=== PATIENT | female | born 1995 | race Caucasian/White ===

== ENCOUNTER 2019-12-24 19:07 | Emergency (ER) | payer SELFPAY ==
[2019-12-24] MEDS ORDERED: Sodium Chloride 0.9% 2.5 ML Syringe FLUSH PRN (19:29)
[2019-12-24] MEDS ORDERED: Sodium Chloride 0.9% 10 ML Syringe FLUSH PRN (19:29)
[2019-12-24 20:07] LABS: BLOOD UREA NITROGEN,BUN 11 mg/dL (7.0-18.0); CARBON DIOXIDE,CO2 30.7 mmol/L (21.0-32.0); CHLORIDE,CL 103 mmol/L (98-107); GLUCOSE RANDOM 96 mg/dL (74-106); POTASSIUM,K 3.9 mmol/L (3.5-5.1); SODIUM,NA 143 mmol/L (136-145)
[2019-12-24] MEDS ORDERED: Ketorolac 30 MG/ML SDV IVPUSH ONE (20:35)
--- NOTE | 2019-12-24 21:12 | EDM.PDOC ---
ED HPI GENERAL MEDICAL PROBLEM - General Chief Complaint: Abdominal Pain Stated Complaint: ABDOMINAL PAIN Time Seen by Provider: 12/24/19 19:20 Source of Information: Reports: Patient History Limitations: Reports: No Limitations - History of Present Illness INITIAL COMMENTS - FREE TEXT/NARRATIVE: Presents reporting a one-month history of pelvic pain. It comes and goes but got worse today. She has not sought medical attention previous to this. She has a Kyleena for control is sexually active with one partner. Just had her Kyleena inserted about 3 months ago: periods have been irregular--she bled for 2 weeks stop for a week and started for another 2 weeks. Currently no vaginal bleeding for the last week. Denies dysuria, fever, back pain, vaginal itch or discharge, vomiting, constipation, diarrhea. lower abdomen Pain Score (Numeric/FACES): 9 - Related Data Allergies Allergy/AdvReac Type Severity Reaction Status Date / Time hydrocodone Allergy Itching Verified 12/24/19 19:20 lavender (Lavandula Allergy Hives Verified 12/24/19 19:20 angustifolia) Home Meds: Home Meds Biotin 1 tab PO DAILY 12/24/19 [History] Multivitamin [Multivitamins] 1 tab PO DAILY 12/24/19 [History] Sulfamethoxazole/Trimethoprim [Bactrim Ds Tablet] 1 each PO BID #6 tablet 12/24/19 [Rx] Past Medical History Gastrointestinal History: Reports: GERD, Other (See Below) Other Gastrointestinal History: Gastic Intestinal Metaplasia - Past Surgical History Musculoskeletal Surgical History: Reports: Other (See Below) Other Musculoskeletal Surgeries/Procedures:: Torn Hip Labrum, Bone Overgrowth, Hip Dysplasia Social & Family History - Family History Family Medical History: Noncontributory - Tobacco Use Smoking Status *Q: Never Smoker - Recreational Drug Use Recreational Drug Use: No ED ROS GENERAL - Review of Systems Review Of Systems: Comprehensive ROS is negative, except as noted in HPI. ED EXAM, GI/ABD - Physical Exam Exam: See Below Exam Limited By: No Limitations General Appearance: Alert, No Apparent Distress Ears: Normal External Exam Nose: Normal Inspection Throat/Mouth: Normal Inspection Head: Atraumatic, Normocephalic Neck: Normal Inspection Respiratory/Chest: No Respiratory Distress, Lungs Clear, Normal Breath Sounds Cardiovascular: Normal Peripheral Pulses, Regular Rate, Rhythm, No Murmur GI/Abdominal Exam: Normal Bowel Sounds, Soft (Female) Exam: Normal External Exam, Normal Bimanual Exam, Cervical Lesions (Erosion around the cervical os), Vaginal Discharge (white, thick), Other (IUD strings protruding from the cervical os). No: Adnexal Mass, Adnexal Tenderness, Cervical Dilatation, Cervical Discharge, Cervix Motion Tenderness, Uterine Tenderness, Vaginal Bleeding, Vaginal Lesions Back Exam: Normal Inspection Extremities: Normal Inspection Neurological: Alert, Oriented Psychiatric: Normal Affect, Normal Mood Skin Exam: Warm, Dry, Intact, Normal Color, No Rash Lymphatic: No Adenopathy Course - Vital Signs Last Recorded V/S: Last Vital Signs Temp 36.5 C 12/24/19 19:17 Pulse 80 12/24/19 19:17 Resp 16 12/24/19 19:17 BP 128/85 12/24/19 19:17 Pulse Ox 98 12/24/19 19:17 - Orders/Labs/Meds Orders: Active Orders 24 hr Category Date Time Status Sodium Chloride 0.9% [Saline Flush] Med 12/24/19 19:29 Ordered 10 ml FLUSH ASDIRECTED PRN Sodium Chloride 0.9% [Saline Flush] Med 12/24/19 19:29 Ordered 2.5 ml FLUSH ASDIRECTED PRN Saline Lock Insert [OM.PC] Stat Oth 12/24/19 19:29 Ordered Medication Orders Sodium Chloride (Saline Flush) 10 ml FLUSH ASDIRECTED PRN PRN Reason: Keep Vein Open Sodium Chloride (Saline Flush) 2.5 ml FLUSH ASDIRECTED PRN PRN Reason: Keep Vein Open Labs: Laboratory Tests 12/24/19 12/24/19 12/24/19 Range/Units 19:33 19:33 19:42 WBC 6.83 (4.0-11.0) K/uL RBC 4.57 (4.30-5.90) M/uL Hgb 14.1 (12.0-16.0) g/dL Hct 42.7 (36.0-46.0) % MCV 93.4 (80.0-98.0) fL MCH 30.9 (27.0-32.0) pg MCHC 33.0 (31.0-37.0) g/dL RDW Std Deviation 44.9 (28.0-62.0) fl RDW Coeff of Shahzad 13 (11.0-15.0) % Plt Count 247 (150-400) K/uL MPV 10.30 (7.40-12.00) fL Neut % (Auto) 56.6 (48.0-80.0) % Lymph % (Auto) 33.4 (16.0-40.0) % [place] % (Auto) 7.0 (0.0-15.0) % Eos % (Auto) 2.6 (0.0-7.0) % Baso % (Auto) 0.4 (0.0-1.5) % Neut # (Auto) 3.9 (1.4-5.7) K/uL Lymph # (Auto) 2.3 (0.6-2.4) K/uL [place] # (Auto) 0.5 (0.0-0.8) K/uL Eos # (Auto) 0.2 (0.0-0.7) K/uL Baso # (Auto) 0.0 (0.0-0.1) K/uL Nucleated RBC % 0.0 /100WBC Nucleated RBCs # 0 K/uL Sodium 143 (136-145) mmol/L Potassium 3.9 (3.5-5.1) mmol/L Chloride 103 (98-107) mmol/L Carbon Dioxide 30.7 (21.0-32.0) mmol/L BUN 11 (7.0-18.0) mg/dL Creatinine 0.7 (0.6-1.0) mg/dL Est Cr Clr Drug Dosing 93.18 mL/min Estimated GFR (MDRD) > 60.0 ml/min Glucose 96 (74-106) mg/dL Calcium 9.5 (8.5-10.1) mg/dL Total Bilirubin 0.6 (0.2-1.0) mg/dL AST 18 (15-37) IU/L ALT 18 (14-63) IU/L Alkaline Phosphatase 62 (46-116) U/L Total Protein 7.1 (6.4-8.2) g/dL Albumin 4.7 (3.4-5.0) g/dL Globulin 2.4 L (2.6-4.0) g/dL Albumin/Globulin Ratio 2.0 H (0.9-1.6) Urine Color YELLOW Urine Appearance HAZY Urine pH 7.0 (5.0-8.0) Ur Specific [place] 1.025 (1.001-1.035) Urine Protein NEGATIVE (NEGATIVE) mg/dL Urine Glucose (UA) NEGATIVE (NEGATIVE) mg/dL Urine Ketones NEGATIVE (NEGATIVE) mg/dL Urine Occult Blood NEGATIVE (NEGATIVE) Urine Nitrite NEGATIVE (NEGATIVE) Urine Bilirubin NEGATIVE (NEGATIVE) Urine Urobilinogen 0.2 (<2.0) EU/dL Ur Leukocyte Esterase TRACE H (NEGATIVE) Urine RBC 0-2 (0-2/HPF) Urine WBC 1-3 (0-5/HPF) Ur Epithelial Cells OCCASIONAL (NONE-FEW) Urine Bacteria 1+ H (NEGATIVE) Meds: Medications Generic Name Dose Route Start Last Admin Trade Name Freq PRN Reason Stop Dose Admin Sodium Chloride 10 ml 12/24/19 19:29 Saline Flush FLUSH ASDIRECTED PRN Keep Vein Open Sodium Chloride 2.5 ml 12/24/19 19:29 Saline Flush FLUSH ASDIRECTED PRN Keep Vein Open Departure - Departure Time of Disposition: 21:33 Disposition: Home, Self-Care 01 Condition: Good Clinical Impression: Pelvic pain - Discharge Information Referrals: PCP,None [Primary Care Provider] - [facility] [Outside] [facility] [Outside] Augie Christiansen MD [Physician] - [facility] [Outside] Additional Instructions: The following information is given to patients seen in the emergency department who are being discharged to home. This information is to outline your options for follow-up care. We provide all patients seen in our emergency department with a follow-up referral. The need for follow-up, as well as the timing and circumstances, are variable depending upon the specifics of your emergency department visit. If you don't have a primary care physician on staff, we will provide you with a referral. We always advise you to contact your personal physician following an emergency department visit to inform them of the circumstance of the visit and for follow-up with them and/or the need for any referrals to a consulting specialist. The emergency department will also refer you to a specialist when appropriate. This referral assures that you have the opportunity for follow-up care with a specialist. All of these measure are taken in an effort to provide you with optimal care, which includes your follow-up. Under all circumstances we always encourage you to contact your private physician who remains a resource for coordinating your care. When calling for follow-up care, please make the office aware that this follow-up is from your recent emergency room visit. If for any reason you are refused follow-up, please contact the [facility] Emergency Department at and asked to speak to the emergency department charge nurse. 1. Follow up by making an appointment in [employer] either at [facility] or [facility] Dr. Christiansen 2. Tylenol Arthritis (650mg) three times daily as needed for pain. 3. We will call with the results of your yeast/BV/tric test Sepsis Event Note (ED) - Evaluation Sepsis Screening Result: No Definite Risk - Focused Exam Vital Signs: Vital Signs Temp Pulse Resp BP Pulse Ox 12/24/19 19:17 36.5 C 80 16 128/85 98 - My Orders Last 24 Hours: My Active Orders 12/24/19 19:29 Sodium Chloride 0.9% [Saline Flush] 10 ml FLUSH ASDIRECTED PRN Sodium Chloride 0.9% [Saline Flush] 2.5 ml FLUSH ASDIRECTED PRN Saline Lock Insert [OM.PC] Stat - Assessment/Plan Last 24 Hours: My Active Orders 12/24/19 19:29 Sodium Chloride 0.9% [Saline Flush] 10 ml FLUSH ASDIRECTED PRN Sodium Chloride 0.9% [Saline Flush] 2.5 ml FLUSH ASDIRECTED PRN Saline Lock Insert [OM.PC] Stat
== END 2019-12-24 22:20 | disposition home or self-care (01) ==
LOC: MW.ED 19:07
DX: R10.2 Pelvic and perineal pain (principal); Z88.5 Allergy status to narcotic agent; Z91.048 Other nonmedicinal substance allergy status
CPT/HCPCS: 36415; 80053; 81001; 85025; 87480; 87510; 87660; 96374; 99284; J1885

== ENCOUNTER 2020-02-09 20:19 | Emergency (ER) | payer MEDICAID, OTHER ==
--- NOTE | 2020-02-09 21:53 | EDM.PDOC ---
<Wilfred Chakraborty - Last Filed: 02/09/20 23:51> ED HPI GENERAL MEDICAL PROBLEM - General Chief Complaint: Cardiovascular Problem Stated Complaint: COVID SYMPTOMS Time Seen by Provider: 02/09/20 20:22 - Related Data Allergies Allergy/AdvReac Type Severity Reaction Status Date / Time hydrocodone Allergy Itching Verified 02/09/20 21:08 lavender (Lavandula Allergy Hives Verified 02/09/20 21:08 angustifolia) Home Meds: Home Meds Biotin 1 tab PO DAILY 12/24/19 [History] Multivitamin [Multivitamins] 1 tab PO DAILY 12/24/19 [History] Course - Vital Signs Text/Narrative:: Followed up on the results of this patient's swabs and x-rays. X-rays are negative, COVID is negative, strep is negative. She does not have any stridor, no drooling, tolerating oral secretions, no trouble breathing, does not appear to be in any distress. Encouraged her to use medications at home including [id number] meds for symptomatic relief and care of her symptoms. Patient understands this plan and is agreeable with it. Stable and nontoxic at discharge. Departure - Departure Time of Disposition: 23:50 Disposition: Home, Self-Care 01 Condition: Good Clinical Impression: Sore throat Instructions: Viral Respiratory Infection, [id number] Referrals: PCP,None [Primary Care Provider] - Forms: ED Department Discharge Additional Instructions: Follow-up with primary care doctor. Return to the ER with any new or worsening symptoms. The following information is given to patients seen in the emergency department who are being discharged to home. This information is to outline your options for follow-up care. We provide all patients seen in our emergency department with a follow-up referral. The need for follow-up, as well as the timing and circumstances, are variable depending upon the specifics of your emergency department visit. If you don't have a primary care physician on staff, we will provide you with a referral. We always advise you to contact your personal physician following an emergency department visit to inform them of the circumstance of the visit and for follow-up with them and/or the need for any referrals to a consulting specialist. The emergency department will also refer you to a specialist when appropriate. This referral assures that you have the opportunity for follow-up care with a specialist. All of these measure are taken in an effort to provide you with optimal care, which includes your follow-up. Under all circumstances we always encourage you to contact your private physician who remains a resource for coordinating your care. When calling for follow-up care, please make the office aware that this follow-up is from your recent emergency room visit. If for any reason you are refused follow-up, please contact the [facility] Emergency Department at and asked to speak to the emergency department charge nurse. <Dolly Barillas - Last Filed: 02/12/20 10:07> ED HPI GENERAL MEDICAL PROBLEM - General Source of Information: Reports: Patient History Limitations: Reports: No Limitations - History of Present Illness INITIAL COMMENTS - FREE TEXT/NARRATIVE: HISTORY AND PHYSICAL: History of present illness: Patient is a 24-year-old female who presents to the ED today with concern of throat discomfort with increase in mucus in her throat. Patient states she also has a low grade headache. Patient states she has had to cough up the mucus more than usual. Patient denies any nasal congestion or runny nose. Patient states she has been able to eat and drink but does have discomfort with swallowing and has a sensation that her throat is more swollen. Patient denies any health history or any other symptoms or concerns. Patient denies fever, chills, chest pain, shortness of breath. Denies neck stiff ness, change in vision, syncope, or near syncope. Denies nausea, vomiting, abdominal pain, diarrhea, constipation, or dysuria. Has not noted any blood in urine or stool. Patient has been eating and drinking appropriately. Review of systems: As per history of present illness and below otherwise all systems reviewed and negative. Past medical history: As per history of present illness and as reviewed below otherwise noncontributory. Surgical history: As per history of present illness and as reviewed below otherwise noncontributory. Social history: See social history for further information Family history: As per history of present illness and as reviewed below otherwise n oncontributory. Physical exam: General: Patient is alert, oriented, and in no acute distress. Patient sitting comfortably on exam table. HEENT: Atraumatic, normocephalic, pupils equal and reactive bilaterally, negative for conjunctival pallor or scleral icterus, mucous membranes moist, TMs normal bilaterally, throat is moderately erythematous with absent tonsils, there is a thick white postnasal drainage of the posterior oropharynx, uvula midline, neck supple, nontender, trachea midline. No drooling or trismus noted. No meningeal signs. No hot potato voice noted. Lungs: Clear to auscultation, breath sounds equal bilaterally, chest nontender. Heart: S1S2, regular rate and rhythm without overt murmur Abdomen: Soft, nondistended, nontender. Negative for masses or hepatosplenomegaly. Negative for costovertebral tenderness. Pelvis: Stable nontender. Genitourinary: Deferred. Rectal: Deferred. Skin: Intact, warm, dry. No lesions or rashes noted. Extremities: Atraumatic, negative for cords or calf pain. Neurovascular unremarkable. Neuro: Awake, alert, oriented. Cranial nerves II through XII unremarkable. Cerebellum unremarkable. Motor and sensory unremarkable throughout. Exam nonfocal. Notes: Dr. Chakraborty has assumed care patient will follow remaining diagnostics and disposition. Diagnostics: COVID19, Strep, chest x-ray, soft tissue neck x-ray Therapeutics: Prescription: Impression: Pharyngitis Plan: Definitive disposition and diagnosis as appropriate pending reevaluation and review of above. Past Medical History HEENT History: Reports: None Cardiovascular History: Reports: None Respiratory History: Reports: None Gastrointestinal History: Reports: GERD, Other (See Below) Other Gastrointestinal History: Gastic Intestinal Metaplasia Genitourinary History: Reports: None PATIENT FINANCIAL REPRESENTATIVE History: Reports: None - Past Surgical History Musculoskeletal Surgical History: Reports: Other (See Below) Other Musculoskeletal Surgeries/Procedures:: Torn Hip Labrum, Bone Overgrowth, Hip Dysplasia Social & Family History - Family History Family Medical History: Noncontributory - Tobacco Use Smoking Status *Q: Never Smoker Second Hand Smoke Exposure: No - Caffeine Use Caffeine Use: Reports: None - Alcohol Use Days Per Week of Alcohol Use: 4 Number of Drinks Per Day: 2 Total Drinks Per Week: 8 - Recreational Drug Use Recreational Drug Use: No ED ROS GENERAL - Review of Systems Review Of Systems: Comprehensive ROS is negative, except as noted in HPI. ED EXAM, GENERAL - Physical Exam Exam: See Below (see dictation) Course - Vital Signs Last Recorded V/S: Last Vital Signs Temp 97.7 F 02/09/20 23:56 Pulse 78 02/10/20 00:05 Resp 18 02/10/20 00:05 BP 127/68 02/10/20 00:05 Pulse Ox 98 02/10/20 00:05 - Orders/Labs/Meds Labs: Laboratory Tests 02/09/20 Range/Units 21:50 COVID-19 (MURTAZA) NEGATIVE (NEGATIVE) Sepsis Event Note (ED) - Evaluation Sepsis Screening Result: No Definite Risk
--- NOTE | 2020-02-09 23:47 | CR ---
INDICATION: Throat pain swelling TECHNIQUE: Single view chest. FINDINGS: The lungs are clear. The heart, mediastinum and pulmonary vessels are of normal size. There is no evidence of pleural disease. IMPRESSION: Negative chest. Dictated by Samantha Chapin MD @ Feb 09 2020 11:45PM Signed by Dr. Samantha Chapin @ Feb 09 2020 11:46PM
--- NOTE | 2020-02-09 23:49 | CR ---
Throat pain swelling Two views of the neck. Findings: Reversal of the normal cervical lordosis. No fractures. Prevertebral soft tissues are within normal limits. No soft tissue gas. No radiopaque foreign body. Dictated by Samantha Chapin MD @ Feb 09 2020 11:46PM Signed by Dr. Samantha Chapin @ Feb 09 2020 11:48PM
== END 2020-02-10 00:07 | disposition home or self-care (01) ==
LOC: MW.ED 20:19
DX: J02.9 Acute pharyngitis, unspecified (principal); Z88.5 Allergy status to narcotic agent; Z88.8 Allergy status to other drugs, medicaments and biological substances; Z20.828 Contact with and (suspected) exposure to other viral communicable diseases
CPT/HCPCS: 70360; 70360-26; 71045; 71045-26; 87081; 87880-QW; 99282; 99283-25; U0002